=== PATIENT | male | born 1975 | race Two or more races ===

== ENCOUNTER 2024-01-19 04:39 | Emergency (ER) | payer SELFPAY ==
[2024-01-19] MEDS ORDERED: Sodium Chloride 0.9% 10 ML Syringe FLUSH PRN (04:53)
[2024-01-19] MEDS ORDERED: Sodium Chloride 0.9% 2.5 ML Syringe FLUSH PRN (04:53)
[2024-01-19 05:01] LABS: BASOPHILS ABSOLUTE AUTO 0.04 K/uL (0.00-0.20); BASOPHILS PERCENT AUTO 0.4 % (0.0-1.0); EOSINOPHILS ABSOLUTE AUTO 0.04 K/uL (0.00-0.45); EOSINOPHILS PERCENT AUTO 0.4 % (0.0-6.0); HEMATOCRIT 46.2 % (42.0-52.0); HEMOGLOBIN 15.8 g/dL (14.0-18.0); IMMATURE GRAN ABSOLUTE AUTO 0.02 K/uL (0.00-0.05); IMMATURE GRAN PERCENT AUTO 0.2 % (0.0-0.4); LYMPHOCYTES ABSOLUTE AUTO 2.14 K/uL (1.00-4.80); LYMPHOCYTES PERCENT AUTO 20.1 % (24.0-44.0); MEAN CORPUSCULAR HGB CONC 34.2 g/dL (32.0-36.0); MEAN CORPUSCULAR VOLUME 90.6 fL (83.0-99.0); MEAN PLATELET VOLUME 8.9 fL (9.4-12.4); MONOCYTES ABSOLUTE AUTO 0.52 K/uL (0.00-0.80); MONOCYTES PERCENT AUTO 4.9 % (0.0-8.0); NEUTROPHILS ABSOLUTE AUTO 7.89 K/uL (1.80-7.70); PLATELET COUNT,PLT 331 K/uL (150-400); WHITE BLOOD CELL COUNT,WBC 10.65 K/uL (3.9-11.3)
[2024-01-19] MEDS: Alum Hydrox/Mag Hydrox/Simeth 15 ML, Lidocaine 2% 5 ML PO ONE (05:11)
[2024-01-19] MEDS: fentaNYL 50 MCG/ML SDV IVPUSH ONE (05:11)
[2024-01-19] MEDS: Famotidine 20 MG/2 ML SDV IVPUSH ONE (05:12)
[2024-01-19] MEDS: Ondansetron 4 MG/2 ML SDV IVPUSH ONE (05:12)
[2024-01-19 05:19] LABS: A/G RATIO 1.1 (0.9-1.6); ALBUMIN 3.9 g/dL (3.4-5.0); BILIRUBIN TOTAL 0.6 mg/dL (0.2-1.0); CALCIUM 9.8 mg/dL (8.5-10.1); CARBON DIOXIDE,CO2 28.9 mmol/L (21.0-32.0); EST CRCL DRUG DOSING (CG) 91.32 mL/min; POTASSIUM,K 4.2 mmol/L (3.5-5.1); PROTEIN TOTAL,TP 7.5 g/dL (6.4-8.2)
[2024-01-19] MEDS: Iopamidol 755 MG/ML 500 ML Multipack Bottle IVPUSH STA (06:11)
== END 2024-01-19 06:54 | disposition home or self-care (01) ==
LOC: MW.ED 04:39
DX: R10.13 Epigastric pain (principal); Z75.8 Other problems related to medical facilities and other health care
CPT/HCPCS: 36415; 74177; 80053; 83690; 85025; 96374; 96375; 99284; A9270; J2405; J3010; J3490; Q9967